=== PATIENT | female | born 1970 | race Hispanic/Latino ===

== ENCOUNTER 2021-01-29 10:39 | Emergency (ER) | payer SELFPAY ==
[~2021-01-29] VITALS: Ht 154.9 cm; Wt 68.0 kg
[2021-01-29 10:56] VITALS: BP 173/107
[2021-01-29 11:52] VITALS: BP 176/99
[2021-01-29] MEDS ORDERED: LIDOCAINE 5% TOPICAL PATCH TP ONE (12:00)
[2021-01-29] MEDS ORDERED: ORPHENADRINE CITRATE 30 MG/ML ML IV ONE (12:00)
[2021-01-29] MEDS ORDERED: CYCL10TA7 PO (13:25)
[2021-01-29] MEDS ORDERED: PRED20TA3 PO (13:25)
[2021-01-29] MEDS ORDERED: SOLU-MEDROL 125MG VIAL IVP ONE (13:30)
[2021-01-29 14:13] VITALS: BP 168/88
== END 2021-01-29 11:43 | disposition home or self-care (01) ==
LOC: EDH 10:39
DX: M54.16 Radiculopathy, lumbar region (principal); K29.70 Gastritis, unspecified, without bleeding; Z79.52 Long term (current) use of systemic steroids; Z88.6 Allergy status to analgesic agent
CPT/HCPCS: 72131; 96374; 96375; 99284; J2360; J2930